=== PATIENT | female | born 1955 | race Caucasian/White ===

== ENCOUNTER 2024-01-03 08:51 | Outpatient (REF) | payer MEDICARE, SELFPAY ==
--- NOTE | 2024-01-03 08:41 | EMG_ITS ---
Bilateral median and ulnar motor and sensory studies were performed. Bilateral radial sensory studies were performed and paraspinal muscles were tested with a needle. Bilateral antecubital sensory studies were performed. IMPRESSION: [id number] bilateral median neuropathy across carpal tunnel. MD JAY JAY Tran/NATASHA / [id number]
== END 2024-01-03 08:52 | disposition home or self-care (01) ==
LOC: HO.NEURO 08:51
PROVIDERS: PCP Internal Medicine; Visit Provider Internal Medicine
DX: G56.93 Unspecified mononeuropathy of bilateral upper limbs (principal)
CPT/HCPCS: 95886; 95913

== ENCOUNTER 2024-09-26 09:57 | Outpatient (REF) | payer MEDICARE, SELFPAY ==
--- NOTE | ~2024-09-26 | MR_ITS ---
EXAMINATION: MR BRAIN WITHOUT CONTRAST CLINICAL INFORMATION: MCI. Family history of dementia. COMPARISON: None available. TECHNIQUE: MRI of the brain was obtained using routine sequences without contrast. FINDINGS: Focal susceptibility signal dorsal left midline mervin. Vascular morphology susceptibility signal, midline mid mervin. No signal abnormality or gross volume loss in the hippocampi. No restricted diffusion. No acute intracranial hemorrhage, mass effect, midline shift, hydrocephalus or herniation. Bilateral multifocal patchy and punctate deep periventricular and subcortical white matter hyperintense T2 FLAIR signal involving centrum semiovale and murrieta radiata and old lacunar infarcts in the basal ganglia and murrieta radiata white matter and likely cerebellum.. Probable coarctation frontal horns lateral ventricles, congenital. Flow-void signal within the main cerebral vessels is normal. Sellar/suprasellar region demonstrated no signal abnormality or masses. Craniocervical junction demonstrates normal position of the cerebellar tonsils. Mucosal thickening, paranasal sinuses. 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 No acute brain abnormality. White matter disease likely related to small vessel occlusive disease. Electronically signed by: Brant Bueno MD 09/26/2024 11:14 AM EDT
--- OUTSIDE RECORDS SUMMARY | 2024-09-26 11:20 | XMS_ITS | Clinical Summary ---
Author Organization [facility] Address [address] [place] [address] Phone Care Team Providers Care Tool Filer Hand Name Role Phone Slim Oswaldojeovany OJEDA Primary Care Provider [phone] Allergies Active Allergy Reactions Criticality Noted Date Comments House Dust Other (See Comments) 03/09/2005 Bronchospasm or Wheezing Medications colchicine (COLCRYS) 0.6 mg tablet Take 0.6 mg by mouth daily. Active aspirin 81 mg chewable tablet Take 81 mg by mouth daily. Active multivitamin with minerals tablet Take 1 tablet by mouth. Active cholecalciferol , vitamin D3, (VITAMIN D3) 10 mcg (400 unit) capsule Take 5,000 Units by mouth. Active cyanocobalamin, vitamin B-12, 1,000 mcg TbER Take 1 tablet by mouth. Active fluticasone propionate (FLONASE) 50 mcg/actuation nasal spray 6 09/20/19 25 Discontinu ed(No longer taking) rosuvastatin (CRESTOR) 10 MG tablet Take 1 tablet (10 mg total) by mouth daily. 90 tablet 3 8 09/20/19 25 Discontinu ed(No longer taking) Active Problems Problem Noted Date Diagnosed Date Women's annual routine gynecological examination 04/17/2019 Myalgia of pelvic floor 10/31/2018 Bicuspid aortic valve 04/03/2018 Overview (04/03/2018): Bicuspid aortic valve. Service date: 07/20/2013. Author: Alan Bonds MD. Atrial septal defect 04/03/2018 Overview (04/03/2018): Atrial septal defect. Service date: 07/20/2013. Author: Alan Bonds MD. Comment: Followed by Dr. Montemayor for congenital abnormality. Last echocardiogram in 2010. Patent foramen ovale 04/03/2018 Overview (04/03/2018): Patent foramen ovale. Service date: 02/08/2013. Author: Margarita Tirado MD. Summary: with intraatrial septal aneurysm. Comment: no history of neurologic events. Daily aspirin. Ventricular septal defect 04/03/2018 Overview (04/03/2018): Ventricular septal defect. Service date: 02/08/2013. Author: Margarita Tirado MD. 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 Service date: 07/20/2013. Author: Alan Bonds MD. Summary: cleft mitral. Mild regurgitation. 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 Service date: 07/20/2013. Author: Alan Bonds MD. Comment: s/p ablation 01/25/13. She continues on Toprol and had 3 reoccurrences since. She would like to proceed with another ablation, this time spending more time to the left side of the heart. It is noted that the patient has an ASD. She will stop the metoprolol prior to the procedure. Supraventricular tachycardia 04/03/2018 04/03/2018 Overview (04/03/2018): Supraventricular tachycardia. Service date: 10/19/2013. Author: Sinai Bajwa NP. Comment: She is s/p successful ablation with no reoccurrence of her symptoms thus far. She has recovered nicely with no palpitations or groin issues. She remains off beta blockers. She has been encouraged to call us with any reoccurrence of her symptoms, at which time we can consider a redo procedure. Encounters Date Type Department Care Team Description 09/19/2024 1:30 PM EDT Office Visit [facility] Cardiovascular Medicine [address] [facility] [address] [facility], 5th Floor, [address] [place] [address] Bk Noriega CNP Arrhythmia (Primary Dx); Partial AV canal; Atrial septal defect; Cleft leaflet of mitral valve 09/19/2024 11:16 AM EDT - 09/19/2024 11:59 PM EDT Hospital Encounter [facility] Cardiac [address] [place] [address] Margarita Tirado MD Arrived Discharge Disposition: Home or Self Care 03/21/2023 Procedure Pass [facility] Cardiac US [address] [place] [address] from Last 3 Months Immunizations Immunization Administration Dates Next Due Influenza, Unspecified Formulation 01/26/2013(De ferred: Other) Tdap 11/01/2017 Family History Medical History Relation Comments Mesothelioma Father Cancer Maternal Aunt Dementia Mother Relation Status Comments Father (Age 97) Maternal Aunt Mother Alive Social History Tobacco Use Types Packs/Day Years Used Date Smoking Tobacco: Never Smokeless Tobacco: Never Alcohol Use Standard Drinks/Week Comments Yes 1 (1 standard drink = 0.6 oz pur e alcohol) weekends Education Answer Date Recorded Are you interested in more education? Not on ashly e 09/02/2022 Are you concerned about learning? Not on file 09/02/2022 No 09/02/2022 No 09/02/2022 Digital Access Answer Date Recorded No 10/04/2022 No 10/04/2022 No 10/04/2022 Reliable internet access at home? Not on file 10/04/2022 Device with a working camera? 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 on file Not on file Last Filed Vital Signs Vital Sign Reading Time Taken Comments Blood Pressure 101/59 09/19/2024 1:33 PM EDT Pulse 83 09/19/2024 1:33 PM EDT Temperature - - Respiratory Rate 16 10/19/2013 12:00 AM EDT Oxygen Saturation - - Inhaled Oxygen Concentration - - Weight 60.8 kg (134 lb) 09/19/2024 1:33 PM EDT Height 162.6 cm (5' 4 ) 09/19/2024 11:16 AM EDT Body Mass Index 23 09/19/2024 11:16 AM EDT Plan of Treatment Upcoming Encounters Date Type Department Care Team (Late st Contact Info) Description 03/04/2025 1:00 PM EDT Office Visit [facility] Department of Neurology [address] [facility], 8th Foor, [address] [place] [address] Melissa Guadalupe MD [address] [facility] [address] [place] [address] [email or web address] 10/07/2025 2:00 PM EDT Office Visit [facility] Cardiovascular Medicine [address] [facility] [address], 5th Floor, [address] [place] [address] Margarita Tirado MD [address] [facility] [address] [place] [address] [email or web address] Health Maintenance Due Date Last Done Comments DEPRESSION SCREENING 1967 HEPATITIS C SCREENING 1973 COLOGUARD 02/01/2000 COLONOSCOPY 02/01/2000 COLORECTAL CANCER SCREENING 02/01/2000 FIT TEST 02/01/2000 FOBT 02/01/2000 SIGMOIDOSCOPY 02/01/2000 VIRTUAL COLONOSCOPY 02/01/2000 PNEUMOCOCCAL VACCINES (50+ y ears) (1 of 1 - PCV) 2005 ZOSTER VACCINES (1 of 2) 2005 OSTEOPOROSIS SCREENING INITI AL (ONE-TIME) 02/01/2020 MAMMOGRAM 03/27/2021 03/27/2019 COVID-19 VACCINE (2 - 2023-2 5 season) 2024 08/03/2020 LIPID PANEL 05/12/2027 05/12/2022 Adult Td,Tdap Booster 11/02/2027 11/01/2017 RSV VACCINE (1 - 1-dose 75+ series) 2030 SMOKING STATUS SCREENING (On ce After 26 Yrs) Completed 10/31/2018 HEPATITIS A VACCINES Aged Out No long er eligible based on patient's age to complete this topic HIB VACCINES Aged Out No longer eligi ble based on patient's age to complete this topic MENINGOCOCCAL VACCINES (ACWY) Aged Out No longer eligible based on patient's age to complete this topic MENINGOCOCCAL VACCINES (B) Aged Out N o longer eligible based on patient's age to complete this topic Medical Devices Not on file Procedures Procedure Name Priority Date/Time Associated Diagnosis Comments ECG 12-LEAD Routine 09/19/2024 1:38 PM EDT Arrhythmia CONGENITAL TTE COMPREHENSIVE W/ COLOR FLOW AND COMPLETE DOPPLER Routine 09/19/2024 11:54 AM EDT Congenital malformation of heart, unspecified EXTERNALLY RESULTED CHEMISTRY Routine 05/12/2022 HM MAMMOGRAPHY Routine 03/27/2019 from Last 3 Months or Most Recently Relevant to Health Maintenance Results * ECG 12-LEAD (09/19/2024 1:38 PM EDT) Systolic Blood Pressure 101 mmHg [facility] Diastolic Blood Pressure 59 mmHg [facility] Ventricular Rate EKG/MIN 83 BPM [facility] Atrial Rate 83 BPM [facility] LA Interval 200 ms [facility] QRS Duration 92 ms [facility] QT Interval 338 ms [facility] QTC Interval 397 ms [facility] P [place] 53 degrees [facility] R Wave [place] -43 degrees [facility] T Wave [place] 46 degrees [facility] 09/19/2024 1:38 PM EDT 09/26/2024 10:31 AM EDT Narrative [facility] - 09/26/2024 10:31 AM EDT NORMAL SINUS RHYTHM LEFT ANTERIOR HEMIBLOCK BORDERLINE CRITERIA FOR FIRST DEGREE ATRIOVENTRICULAR BLOCK POSSIBLE LEFT ATRIAL ENLARGEMENT NONSPECIFIC ST SEGMENT AND T WAVE ABNORMALITIES WHEN COMPARED WITH ECG OF 21-Mar-2023 13:27, NO SIGNIFICANT CHANGE WAS FOUND Bk Noriega [facility] ECG ORDERABLES Final Re sult [facility] * CONGENITAL TTE COMPREHENSIVE W/ COLOR FLOW AND COMPLETE DOPPLER (09/19/2024 11:54 AM EDT) Body Surface Area 1.63 m2 Left Ventricle Internal Diameter End Diastole 43 37 - 52 mm Left Ventricle Internal Diameter End Systole 28 <35 mm Raw LV EF% 58 % Left Ventricular Apical Contribution 10 Ejection Fraction 68 50 - 75 % Interventricular Septum Thickness 9 6 - 11 mm Aortic Sinus Diameter 29 <40 mm Height 163 cm Left Ventricular Posterior Wall Thickness 9 6 - 11 mm Ascending Aorta Diameter 32 <36 mm Weight 59.00 kg Left Atrium Dimension Anterior-Posterior 38 15 - 40 mm Left Atrial Volume Index 24 16 - 34 mL/m2 Relative Wall Thickness 0.42 0.22 - 0.42 Left Ventricular Mass 123.3 g Left Ventricle indexed to BSA 75.6 g/m2 Right Ventricle Basal Diameter 30 25 - 41 mm Left Atrial Volume 39 mL Left Atrial Volume Index by Height 24 mL/m Right Atrium Dimension Superior-Inferior 55 mm Right Atrium Index Superior-Inferior 34 19 - 30 mm/m2 Right Atrium Dimension Medial-Lateral 37 mm Right Atrium Dimension Medial-Lateral 23 13 - 25 mm/m2 Aortic Valve Sinus Index by BSA 18 mm/m2 Aorta Sinus Index by Height 1.78 cm/m Aorta Sinus CSA index by Height 4.05 cm2/m Ascending Aorta Index 20 mm/m2 Asc Aorta CSA Index by Height 4.93 cm2/m Tricuspid Valve Peak Velocity 2.4 m/s Right Ventricle to Right Atrium Pressure Gradient 23 mmHg Right Ventricle Peak Systolic Pressure (Assuming RAP 10) 33 mmHg MGB CV ECHO TV RVSP (ASSUMING RAP OF 5) 28 mmHg RVSP (Exclusive of RAP) 23 mmHg Ascending Aorta Index 20 mm Aortic Sinus Index 18 mm Ascending Aorta Diameter 20 mm Aortic Valve Sinus Index 1 18 19 - 27 mm AO ASC DIAM BSA INDEX 19.63 Right Atrium Dimension Medial-Lateral 23 mm/m2 Right Atrium Index Superior-Inferior 34 mm/m2 Anatomical Region Laterality Modality Heart Ultrasound Narrative 09/20/2024 10:17 AM EDT ?Normal biventricular size and systolic function ?There is a primum ASD with L to R shunting by Doppler. ?Cleft mitral valve with mild MR. Left Ventricle The left ventricle is normal in size. There is normal wall thickness. There is normal left ventricular systolic function. The LV ejection fraction is 68% (calculated via the single dimension method). There are no wall motion abnormalities. Right Ventricle The right ventricle is normal in size. There is normal right ventricular systolic function. Left Atrium The left atrium is normal in size. The left atrial volume is 39 mL. The left atrial volume index by BSA is 24 mL/m2 (normal: 16-34 mL/m2). Right Atrium The right atrium is dilated. The right atrial superior-inferior dimension is 55 mm; index is 34 mm/m2 (normal: 19-30 mm/m2). The right atrial medial-lateral dimension is 37 mm; index is 23 mm/m2 (normal: 13-25 mm/m2). Mitral Valve There is no evidence of mitral valve prolapse. There is diffuse thickening of both mitral leaflets. There is a cleft anterior mitral valve leaflet. There is no mitral stenosis. There is mild mitral regurgitation with an eccentrically directed jet. Tricuspid Valve There is mild tricuspid regurgitation. The RV systolic pressure was calculated at 33 mmHg (using TR peak velocity of 2.4 m/s and assuming an RA pressure of 10 mmHg). Aortic Valve The aortic valve is tricuspid. There is no aortic stenosis. There is no aortic regurgitation. Pulmonic Valve There is trace pulmonic regurgitation. Pericardium There is no pericardial effusion. General Findings The image quality was fair (3). Comparison Findings Compared to prior TTE study on 06/19/2020, there are no important changes. The RV remains normal in size. IAS/IVS There is a partial A-V canal defect. There is no evidence of patent foramen ovale (PFO). There is a primum atrial septal defect. The ASD shunting is left to right by Doppler. (Loops 79 and 90) There is no evidence of VSD shunting. Margarita Ramirez MD CV ECHO ORDERABLES Final R esult * (ABNORMAL) EXTERNALLY RESULTED CHEMISTRY (05/12/2022) Sodium - External 139 135 - 145 mEq/L Comment:Done at [facility] Potassium - External 4.7 3.5 - 5.5 mmol/L Comment:Done at [facility] Chloride - External 103 96 - 110 mmol/L Comment:Done at [facility] CO2 - External 29 21 - 32 mmol/L Comment:Done at [facility] BUN - External 20 5 - 25 mg/dL Comment:Done at [facility] Creatinine, serum - External 0.63 0.5 - 1.1 mg/dL Comment:Done at [facility] BUN/Creatinine - External eGFR - External eGFR () - External Glucose - External 99 70 - 100 mg/dL Comment:Done at [facility] Calcium - External 9.7 8.5 - 10.5 mg/dL Comment:Done at [facility] Phosphorus - External Magnesium - External Albumin - External 4.1 3.2 - 5 g/dL Comment:Done at [facility] Bilirubin, total - External 0.4 0.0 - 1.4 mg/dL Comment:Done at [facility] Bilirubin, direct - External Bilirubin (conjugated) - External Bilirubin, indirect - External Protein - External 6.8 6 - 8 g/dL Comment:Done at [facility] Alkaline Phosphatase - External 50 42 - 121 U/L Comment:Done at [facility] AST - External 15 10 - 42 U/L Comment:Done at [facility] ALT - External 21 10 - 60 U/L Comment:Done at [facility] Amylase - External Lipase (u/L) - External Cholesterol, total - External 194 0 - 200 mg/dL Comment:Done at [facility] LDL - External 91 0 - 100 mg/dL Comment:Done at [facility] Triglycerides - External 234(A) 0 - 150 mg/dL Comment:Done at [facility] HDL - External 57 >=40 mg/dL Comment:[facility] TIBC - External Iron - External Ferritin - External Folate - External Vitamin B12 - External CK - External Cotinine - External C-peptide (ng/mL) - External C-peptide (pmol/L) - External HCG, qualitative - External HCG, total - External NT-proBNP - External PTH - External TSH - External 2.55 0.40 - 4 uIU/mL Comment:Done at [facility] T3 - External Total T4 - External Free T4 - External Vitamin D 25(OH) - External AFP (Tumor Marker) - External Uric Acid - External PSA - External GGT - External Lactate, dehydrogenase - External Ammonia - External Vitamin A - External Alk phos: Intestinal Isoenzymes - External Alk phos: Bone Isoenzymes - External Alk phos: Liver Isoenzymes - External Alk phos: Placental Isoenzymes - External Alk phos: Macrohepatic Isoenzymes - External Cystatin C - External 05/12/2022 Historical Provider LAB BLOOD ORDERABLES Edit ed Result - Final * MAMMOGRAPHY FOR RESULT ENTRY ONLY (03/27/2019) Adama Teague MD HEALTH MAINTENANCE Final Result from Last 3 Months or Most Recently Relevant to Health Maintenance Insurance MEDICARE PART A & B [facility] MEDICARE REPLACEMENT MEDICARE PART A & B Member Subscriber Plan / Payer (Ef fective 2022-) Name:Wesjesseniajean carlos Tanja Member ID:[id number] Relation to Subscriber:Self Name:WesjesseniaMaicol evangelistaTanja Subscriber ID:[id number] Payer ID:[id number] Group ID:Not on file Type:Medicare Address: [facility] [employer] [facility] [address] [place] [phone] [facility] MEDICARE REPLACEMENT MEDICARE PART A & B MEDICARE PART A & B MEDICARE PART A & B MEDICARE REPLACEMENT MEDICARE PART A & B MEDICARE REPLACEMENT MEDICARE PART A & B MEDICARE REPLACEMENT MEDICARE PART A & B MEDICARE PART A & B MEDICARE REPLACEMENT Care Teams Tool Filer Hand Relationship Specialty Start Date End Date Oswaldo Smalls DO [address] [place] [id number] PCP - General 11/06/13 Additional Source Comments The information contained in this document represents components of the legal health record. It is not the complete legal health record.[facility]
--- OUTSIDE RECORDS SUMMARY | 2024-09-26 11:20 | XMS_ITS | Encounter Summary ---
Author Organization [facility] Address [address] [facility] [address] [place] [address] Phone Care Team Providers Care Pastry Wrapper Name Role Phone Oswaldo Smalls Primary Care Provider [phone] Encounter Details Date Type Department Care Team (Late st Contact Info) Description 05/14/2020 Procedure Pass [facility] Cardiac US [address] [place] [id number] Social History Tobacco Use Types Packs/Day Years Used Date Smoking Tobacco: Never Smokeless Tobacco: Never Alcohol Use Standard Drinks/Week Comments Yes 1 (1 standard drink = 0.6 oz pur e alcohol) weekends Comments No Sex and Gender Information Value Date Recorded Sex Assigned at Female 03/07/2023 11:49 AM EDT Legal Sex Female 7:15 PM EST Gender Identity Female 03/07/2023 11:49 AM EDT Sexual Orientation Straight 03/07/2023 11 :49 AM EDT 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 10/07/2025 2:00 PM EDT Office Visit [facility] Cardiovascular Medicine [address] [facility], 5th [address], [address] [place] [address] Margarita Tirado MD [address] [facility] [address] [place] [address] [email or web address] documented as of this encounter Visit Diagnoses Not on filedocumented in this encounter Care Teams Pastry Wrapper Relationship Specialty Start Date End Date Oswaldo Smalls DO [address] [place] [address] [address] [place] [address] PCP - General 11/06/13 documented as of this encounter Additional Source Comments The information contained in this document represents components of the legal health record. It is not the complete legal health record.[facility]
--- OUTSIDE RECORDS SUMMARY | 2024-09-26 11:20 | XMS_ITS | Clinical Summary ---
Author Organization [facility] [email or web address] Address [address] [facility] [place] [address] Care Team Providers Care Elementary Education Tutor Name Role Phone No, Pcp MARINE ERECTOR Primary Care Provider Unavailabl e Allergies No known active allergies Medications COLCRYS 0.6 mg tablet 1 09/05/2015 Active fluticasone (FLONASE) 50 mcg/actuation nasal spray 3 08/11/2015 Active simvastatin (ZOCOR) 10 MG tablet 0 09/25/2015 Active Social History Tobacco Use Types Packs/Day Years Used Date Smoking Tobacco: Never Tobacco Cessation:Counseling Given: No Alcohol Use Standard Drinks/Week Comments Not Asked 0 (1 standard drink = 0.6 oz pur e alcohol) Comments No Sex and Gender Information Value Date Recorded Sex Assigned at Not on file Legal Sex Female 12:08 PM EDT Gender Identity Not on file Sexual Orientation Not on file Last Filed Vital Signs Vital Sign Reading Time Taken Comments Blood Pressure 110/72 11/15/2017 3:24 PM EDT Pulse 81 11/15/2017 3:24 PM EDT Temperature 37.1 ??C (98.7 ??F) 11/15/2017 3:24 PM ED T Respiratory Rate 16 11/15/2017 3:24 PM EDT Oxygen Saturation 97% 11/15/2017 3:24 PM EDT Inhaled Oxygen Concentration - - Weight 65.8 kg (145 lb) 11/15/2017 3:24 PM EDT Height - - Body Mass Index - - Plan of Treatment Health Maintenance Due Date Last Done Comments Colorectal Cancer: COLONOSCO PY Screening every 10 yrs (or Modifier) 1955 Depression: Screening Annual ly using PHQ-2/9 in Adults 18 yrs or above (or HM Modifier)([facility]) 1973 Hepatitis C Virus Infection in Adolescents and Adults: Screening (or Modifier) ([facility]) 1973 JACKI Screening: Once using ST OP-BANG Questionnaire for Adults with Conditions or high BMI([facility]) 1973 SDOH Screening Reminder: Kristina gutierrez for all adults ([facility]) 1973 Tobacco Smoking Cessation: i n Adults excluding Women: Behavioral and Pharmacotherapy Interventions ([facility]) 1973 DTaP/Tdap/Td Vaccines ([facility]) (1 - Tdap) 1974 Colorectal Cancer Screening 45 -75 Yrs (or HM Modifier ) 02/01/2000 Colorectal Cancer: FLEXIBLE SIGMOIDOSCOPY Screening every 5 yrs 02/01/2000 Colorectal Cancer: Fecal Imm unochemical Test (FIT) Annually [facility] 02/01/2000 Colorectal Cancer: High-sens itivity gFOBT Screening Annually [facility] 02/01/2000 Colorectal Cancer: Stool Col oguard Screening every 3 yrs 02/01/2000 Colorectal Cancer:CT Colonography Screening every 5 yr s 02/01/2000 zzRETIRED Lipid Screening: E very 5 yrs for Women aged 45+ (or HM Modifier) ([facility]) 2001 Breast Cancer: Screening Kristina gutierrez age 50-74 yrs (or HM Modifier)([facility]) 2005 Pneumococcal Vaccination Scr eening: Patients 50+ yrs of age ([facility]) (1 of 1 - PCV) 2005 Zoster/Shingles Vaccine Seri es Screening: Adults aged 18+ yrs (or HM Modifiers)([facility]) (1 of 2) 2005 Osteoporosis Screening to Pr event Fractures: Women aged 65 years+ ([facility]) 02/01/2020 COVID-19 Vaccine Screening: Initial Series and Booster Status ([facility]) ( - 2023- season) 2024 Flu Vaccination: Ages 65+: Y early High Dose Recommended (or Modifier)([facility]) 12/07/2024 RSV Vaccines (1 - 1-dose 75+ series) 2030 Medical Devices Not on file Insurance [facility] Care Teams Elementary Education Tutor Relationship Specialty Start Date End Date No, Pcp, MARINE ERECTOR N/A Do not use PCP - General 10/17/15
--- OUTSIDE RECORDS SUMMARY | 2024-09-26 11:20 | XMS_ITS | Encounter Summary ---
Author Organization [facility] Address [address] [facility] [address] [place] [address] Phone Care Team Providers Care Claim Representative Name Role Phone Loriraúljenifferchelsie Oswaldo Primary Care Provider [phone] Encounter Details Date Type Department Care Team (Late Contact Info) Description 03/21/2023 Procedure Pass [facility] US [address] [place] [address] Social History Tobacco Use Types Packs/Day Years [...] Encounters Date Type Department Care Team (Late Contact Info) Description 03/04/2025 1:00 PM EDT Office Visit [facility] Department of Neurology [address] [facility], 8th Foor, [address] [place] [address] Melissa Guadalupe MD 55 [facility] [address] [place] [address] [email or web address] [email or web address] 10/07/2025 2:00 PM EDT Office Visit [facility] Cardiovascular Medicine [address] [facility], 5th Floor, [address] [place] [address] Margarita Tirado MD [address] [facility] [address] [place] [address] [email or web address] documented as of this encounter Visit Diagnoses Not on filedocumented in this encounter Care Teams Claim Representative Relationship Specialty Start Date End Date Oswaldo Smalls DO [address] [place] [address] [address] [place] [address] PCP - General 11/06/13 documented as of this encounter Additional Source Comments The information contained in this document represents components of the legal health record. It is not the complete legal health record.[facility]
--- OUTSIDE RECORDS SUMMARY | 2024-09-26 11:20 | XMS_ITS | Encounter Summary ---
Author Organization [facility] Address [address] [facility] [address] [place] [address] Phone Care Team Providers Care Stitch Marker Name Role Phone Oswaldo Smalls DO Primary Care Provider [phone] Reason for Referral * Outpatient Procedure - Closed Specialty Diagnoses / Procedures Referred By Contac t Referred To Contact Diagnoses ASD (atrial septal defect), primum Procedures Echo Congenital TTE Adult Echo TTE Margarita Tirado MD Phone: tel: fax: mailto:[email or web address] Referral ID Status Reason Start Date Expiration Date Visits Re quested Visits Authorized [id number] Closed 05/14/2020 05/14/2021 1 1 Encounter Details Date Type Department Care Team (Latest Contact Info) Description 06/19/2020 Ancillary [place] [facility] [place] [address] [facility], 5th Floor, [address] [place] [address] Margarita Tirado MD 55 [facility] [address] [place] [address] [email or web address] ASD (atrial septal defect), primum Social History Tobacco Use Types Packs/Day Years [...] Description 03/04/2025 1:00 PM EDT Office Visit [facility] [place] of [place]rology [address] [facility], 8th Foor, [address] [place] [address] Melissa Guadalupe MD [address] [facility] [address] [place] [address] [email or web address] 10/07/2025 2:00 PM EDT Office Visit [facility] [place] [address] [facility], 5th Floor, [address] [place] [address] Margarita Tirado MD [address] [facility] [address] [place] [address] [email or web address] documented as of this encounter Results * CONGENITAL TTE COMPREHENSIVE W/ COLOR FLOW AND COMPLETE DOPPLER (06/19/2020 11:37 AM EST) Body Surface Area 1.7 m2 Right Atrium Index Superior-Inferior 29 mm Right Atrium Dimension Medial-Lateral 20 mm Left Ventricle Internal Diameter End Diastole 43 37 - 52 mm Left Ventricle Internal Diameter End Systole 28 22 - 35 mm Raw LV EF% 58 % Left Ventricular Apical Contribution 10 Ejection Fraction 68 50 - 75 % Left Atrial Volume 42 mL Left Atrial Volume Index 24.71 mL/m2 Aortic Sinus Diameter 32 mm Mitral Valve Mean Gradient 1.00 mmHg Mitral Valve Peak Gradient 2.00 mmHg Left Atrium Dimension Anterior-Posterior 35 15 - 40 mm Right Atrium Dimension Superior-Inferior 49 mm Right Atrium Dimension Medial-Lateral 34 mm Tricuspid Valve Peak Velocity 2.1 m/s Right Ventricle Peak Systolic Pressure 28 mmHg Right Atrium Pressure Estimated 10 mmHg Right Ventricle to Right Atrium Pressure Gradient 18 mmHg Height 163 cm Weight 68 kg Ascending Aorta Diameter 32 mm Left Ventricular Posterior Wall Thickness 8 mm Interventricular Septum Thickness 9 mm Left Atrium Dimension Superior-Inferior 53 29 - 53 mm Left Atrium Dimension Medial-Lateral 38 29 - 49 mm Right Ventricle Linear Dimension 35 mm Aortic Valve Sinus Index 1 19 19 - 27 mm Ascending Aorta Diameter 19 mm Right Atrium Index Superior-Inferior 29 mm Right Atrium Dimension Medial-Lateral 20 mm Aortic Sinus Index 19 mm Ascending Aorta Index 19 mm Mitral Valve Gradient HR 70.00 bpm Anatomical Region Laterality Modality Heart Ultrasound Narrative 06/23/2020 3:02 PM EST Left Ventricle The left ventricular cavity size and wall thickness are normal. Left ventricular systolic function is normal. There are no segmental left ventricular wall motion abnormalities noted. The estimated ejection fraction is 68% (Normal 50-75%). The left ventricular ejection fraction was measured by the single dimension method. Right Ventricle The right ventricular size is normal. The right ventricular systolic function is normal. Left Atrium The left atrium is normal in size. The LA volume index is 24.71 mL/m2 (normal indexed value is 16-34 mL/m2). Right Atrium The right atrium is normal in size. The right atrial superior-inferior dimension measures 49 mm. The right atrial medial-lateral dimension measures 34 mm. The IVC is normal in size (2.1cm or less). The IVC demonstrates normal collapse with inspiration which is consistent with normal RA pressure. Mitral Valve There is no evidence of mitral stenosis. There is diffuse thickening of both mitral valve leaflets. There is no evidence of mitral valve prolapse. There is a cleft anterior mitral valve leaflet. There is mild mitral regurgitation detected by spectral and color Doppler. The MR jet originates through the cleft and is directed posteriorly. Tricuspid Valve There is evidence of mild tricuspid regurgitation by color and spectral Doppler. The estimated RV systolic pressure was estimated from the regurgitant tricuspid velocity (assuming an RA pressure of 5mmHg). The estimated PA systolic pressure is 23mmHg. Aortic Valve The aortic valve is tricuspid. There is no evidence of valvular aortic stenosis. There is evidence of trace aortic regurgitation by color and spectral Doppler. Pulmonic Valve There is evidence of trace pulmonary regurgitation by color and spectral Doppler. Pericardium There is no evidence of pericardial effusion. Interatrial Septum There is a small primum atrial septal defect(s). There is no evidence of a patent foramen ovale by Doppler. Interventricular Septum There is a partial A-V canal type defect. The primum ASD is small with left to right shunting and there is no VSD flow. General Findings The image quality was fair (3). The predominant rhythm during the study was sinus. Comparison Findings Compared to a prior TTE from 03/22/2018 no important changes. The degree of MR is unchanged. No right heart enlargement. Segmental Anatomy - Cardiac position: levocardia - {S, D, S} ( unrepaired partial AV canal defect) us Margarita Ramirez MD CV ECHO ORDERABLES Final R esult documented in this encounter Visit Diagnoses Diagnosis ASD (atrial septal defect), primum Ostium primum defect ASD (atrial septal defect), primum Ostium primum defect documented in this encounter Care Teams Stitch Marker Relationship Specialty Start Date End Date Oswaldo Smalls DO [address] [place] [id number] PCP - General 11/06/13 documented as of this encounter Additional Source Comments The information contained in this document represents components of the legal health record. It is not the complete legal health record.[facility]
--- OUTSIDE RECORDS SUMMARY | 2024-09-26 11:21 | XMS_ITS | Encounter Summary ---
Author Organization [facility] Address [address] [facility] [address] [place] [address] Phone Care Team Providers Care Occupational Health And Safety Adviser Name Role Phone Oswaldo Smalls DO Primary Care Provider [phone] Reason for Referral * Outpatient Procedure - Closed Specialty Diagnoses / Procedures Referred By Henry armas Referred To Contact Diagnoses ASD (atrial septal defect) Congenital cleft leaflet of mitral valve Procedures Echo Congenital TTE Adult Echo TTE Margarita Briceño MD Phone: tel: fax: mailto:[email or web address] Referral ID Status Reason Start Date Expiration Date Visits Re quested Visits Authorized [id number] Closed 01/16/2018 01/16/2019 1 1 Encounter Details Date Type Department Care Team (Latest Contact Info) Description 03/22/2018 Ancillary Orders [facility] Cardiovascular Medicine [address] [facility], 5th Floor, [address] [place] [address] Margarita Briceño MD [address] [facility] [address] [place] [address] [email or web address] ASD (atrial septal defect); Congenital cleft leaflet of mitral valve Social History Tobacco Use Types Packs/Day Years Used Date Smoking Tobacco: Never Comments Unknown Sex and Gender Information Value Date Recorded Sex Assigned at Female 03/07/2023 11:49 AM EDT Legal Sex Female 7:15 PM EST Gender Identity Female 03/07/2023 11:49 AM EDT Sexual Orientation Straight 03/07/2023 11 :49 AM EDT documented as of this encounter Plan of Treatment Upcoming Encounters Date Type Department Care Team (Late st Contact Info) Description 03/04/2025 1:00 PM EDT Office Visit [facility] Department of Neurology [address] [facility], 8th Foor, [address] [place] [address] Melissa Guadalupe MD [address] [facility] [address] [place] [address] [email or web address]. [facility] 10/07/2025 2:00 PM EDT Office Visit [facility] Cardiovascular Medicine [address] [facility], 5th Floor, [address] [place] [address] Margarita Briceño MD [address] [facility] [address] [place] [address] [email or web address] documented as of this encounter Results * CONGENITAL TTE COMPREHENSIVE W/ COLOR FLOW AND COMPLETE DOPPLER (03/22/2018 4:11 PM EST) Body Surface Area 1.75 m2 Right Atrium Index Superior-Inferior 31 mm Right Atrium Dimension Medial-Lateral 25 mm Left Ventricle Internal Diameter End Diastole 40 37 - 52 mm Left Ventricle Internal Diameter End Systole 27 22 - 35 mm Raw LV EF% 54 % Left Ventricular Apical Contribution 10 Ejection Fraction 64 50 - 75 % Aortic Sinus Diameter 33 mm Left Atrium Dimension Anterior-Posterior 38 15 - 40 mm Right Atrium Dimension Superior-Inferior 54 mm Right Atrium Dimension Medial-Lateral 43 mm Tricuspid Valve Peak Velocity 2.3 m/s Right Ventricle Peak Systolic Pressure 31 mmHg Right Atrium Pressure Estimated 10 mmHg Right Ventricle to Right Atrium Pressure Gradient 21 mmHg Ascending Aorta Diameter 32 mm Left Ventricular Posterior Wall Thickness 11 mm Interventricular Septum Thickness 10 mm Left Atrium Dimension Superior-Inferior 52 29 - 53 mm Left Atrium Dimension Medial-Lateral 41 29 - 49 mm Aortic Valve Sinus Index 1 19 19 - 27 mm Ascending Aorta Diameter 18 mm Right Atrium Index Superior-Inferior 31 mm Right Atrium Dimension Medial-Lateral 25 mm Aortic Sinus Index 19 mm Ascending Aorta Index 18 mm Anatomical Region Laterality Modality Heart Ultrasound Narrative 03/22/2018 5:13 PM EST ?? Atrioventricular canal/atrioventricular septal defect. Bicuspid aortic valve (fmxza-cef-fjfodjag cusp fusion.) ?? The left ventricular cavity size and wall thickness are normal. Left ventricular systolic function is normal. ?? The right ventricular size is normal. The right ventricular systolic function is normal. ?? Mild mitral/left-atrioventricular valve regurgitation via a cleft. No stenosis. ?? Mild tricuspid/right-atrioventricular valve regurgitation. No stenosis. ?? Small primum atrial septal defect with predominantly left to right shunting. No inlet ventricular septal defect seen. ?? The right atrium is upper normal/borderline dilated. ?? There is trace aortic regurgitation. There is no aortic stenosis. The visualized aorta appears normal. ?? Compared to a prior report from 08/22/2013, trace aortic regurgitation is now present. The right atrium is now borderline enlarged. Left Ventricle The left ventricular cavity size and wall thickness are normal. Left ventricular systolic function is normal. There are no segmental left ventricular wall motion abnormalities noted. The estimated ejection fraction is 64% (Normal 50-75%). The left ventricular ejection fraction was measured by the single dimension method. Right Ventricle The right ventricular size is normal. The right ventricular systolic function is normal. Left Atrium The left atrium is normal in size. Right Atrium The right atrium is borderline dilated. The right atrial superior-inferior dimension measures 54 mm. The right atrial medial-lateral dimension measures 43 mm. Mitral Valve There is a cleft anterior mitral valve leaflet. There is mild mitral regurgitation detected by spectral and color Doppler. The jet of the mitral regurgitation originates from the cleft and is directed posteriorly. Tricuspid Valve There is evidence of mild tricuspid regurgitation by color and spectral Doppler. The RV systolic pressure was estimated from the peak TV regurgitant velocity (assuming an RA pressure of 10 mmHg). The estimated RV systolic pressure is 31 mmHg. Aortic Valve The aortic valve is tricuspid. There is no evidence of valvular aortic stenosis. There is evidence of trace aortic regurgitation by color and spectral Doppler. The visualized portions of the thoracic aorta appear normal. Pulmonic Valve There is no evidence of pulmonic stenosis. There is evidence of trace pulmonary regurgitation by color and spectral Doppler. Pericardium There is no evidence of pericardial effusion. Interatrial Septum There is a small primum atrial septal defect with left to right shunting by Doppler. The ASD measures approximately 7 mm. Interventricular Septum There is a partial A-V canal type defect. The inlet ventricular septum thins and bows toward the tricuspid valve but no ventricular level shunt is identified. General Findings The image quality was good (2). 3D imaging used in the evaluation. Comparison Findings Compared to a prior report from 08/22/2013, trace aortic regurgitation is now present. The right atrium is now borderline enlarged. 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 It is not the complete legal health record.[facility]
== END 2024-09-26 09:58 | disposition home or self-care (01) ==
LOC: HO.MRI 09:57
PROVIDERS: PCP Internal Medicine; Visit Provider Psychiatry & Neurology Neurology
DX: G31.84 Mild cognitive impairment of uncertain or unknown etiology (principal)
CPT/HCPCS: 70551

== ENCOUNTER → 2024-09-26 10:00 | Outpatient (BNV) | payer MEDICARE, SELFPAY | PROVIDERS: PCP Internal Medicine; Visit Provider Radiology Diagnostic Radiology | DX: R90.82 White matter disease, unspecified (principal) | CPT/HCPCS: 70551 ==

== ENCOUNTER 2024-12-03 08:48 | Outpatient (AMB) | payer MEDICARE, SELFPAY ==
--- NOTE | 2024-12-03 08:52 | MHC.OFFVIS ---
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 (Initially seen in August 2024 when she was here for forgetfulness and to find out if she had dementia. Apparently her son and daughter have noted some cognitive issues but there were not here. A set of questions were brought mainly asking if a test could be done to find out if she had dementia. She said that she was ok and not forgetting. Bladder control was ok. Mood was ok. She was not drinking too much alcohol. No h/o change in personality or head injury. No new meds.) [facility] Medical History (Updated 12/03/24 @ 08:59 by Irish Choudhury MD) MCI (mild cognitive impairment) Paresthesia of skin Review of Systems Const Details: Constitutional:?No fever, chills, fatigue, weight loss, or night sweats. HEENT:?No headache, vision changes, hearing loss, nasal congestion, sore throat. Neurological:? Complain of forgetfulness Psychiatric:?No anxiety, depression, mood swings, sleep disturbance, or hallucinations. Endocrine:?No heat/cold intolerance, polydipsia, polyuria, or hair/skin changes. Hematologic/Lymphatic:?No easy bruising, bleeding, or lymphadenopathy. Integumentary (Skin):?No rash, lesions, itching, or color changes. ? Physical Exam Neuro Other: Mental Status: Alert and oriented to person, place, and time. Normal attention. Normal spontaneous speech, fluency, and comprehension. Cranial Nerves: CN II: Visual dickens full to confrontation, visual acuity intact. CN III, IV, : Pupils equal, round, reactive to light and accommodation. Extraocular movements are normal. CN V: Facial sensation is normal. CN VII: Facial movements symmetrical. CN VIII: Hearing intact to bedside conversation is normal. CN IX, X: Palate elevates symmetrically. CN XI: Shoulder shrug and head turn symmetrical. CN XII: Tongue midline without atrophy or fasciculations. Extrapyramidal: Full facial expressions and blinking. No rigidity. Movements are appropriate with no tremor or abnormality. Speech: Normal; no dysarthria or tremor. Assessment & Plan Assessment & Plan (1) MCI (mild cognitive impairment): Comment: MRI brain WO at [facility] in September 2024: Mild MVD, Tiny left pontine probably cavernous angioma Labs at [facility] at [facility] in 2024: TSH 1.74, B12 550 Code(s): G31.84 - Mild cognitive impairment of uncertain or unknown etiology Category: Medical Plan Impression: a: Mild cognitive impairment b: Mild cerebral microvascular changes c: Tiny pontine cavernoma Rec: a: Abeta 42/tau serum test for cerebral amyloid load b: Neurophiatry eval at office Orders: Orders ABeta 42/40 p-tau 217 Eval Today G31.84 - Mild cognitive impairment of uncertain or unknown etiology Referrals Neuropsychiatry Referral G31.84 - Mild cognitive impairment of uncertain or unknown etiology Coding Level of Care Code Est Pt Level 4 (87477) Diagnoses MCI (mild cognitive impairment) G31.84
--- OUTSIDE RECORDS SUMMARY | 2024-12-03 09:21 | XMS_ITS | Clinical Summary ---
Author Organization [facility] Address [address] [facility] [place] [address] Care Team Providers Care Pest Control Chemical Technician Name Role Phone No, Pcp CABLE TOWER OPERATOR Primary Care Provider Unavailabl e Allergies No [...] 81 11/15/2017 3:24 PM EDT Temperature 37.1 C (98.7 F) 11/15/2017 3:24 PM EDT Respiratory Rate 16 11/15/2017 3:24 PM EDT [...] Adults 18 yrs or above (or HM Modifier)([facility]) 1973 Hepatitis C Virus Infection in Adolescents and Adults: Screening (or Modifier) ([facility]) 1973 JACKI Screening: Once using ST OP-BANG Questionnaire for Adults with Conditions or high BMI([facility]) 1973 SDOH Screening Reminder: Kristina gutierrez for all adults ([facility]) 1973 Tobacco Smoking Cessation: i n Adults excluding Women: Behavioral and Pharmacotherapy Interventions ([facility]) 1973 DTaP/Tdap/Td Vaccines ([facility]) (1 - Tdap) 1974 Colorectal Cancer Screening 45 -75 Yrs (or HM Modifier ) 02/01/2000 Colorectal Cancer: FLEXIBLE SIGMOIDOSCOPY Screening every 5 yrs 02/01/2000 Colorectal Cancer: Fecal Imm unochemical Test (FIT) Annually [facility] 02/01/2000 Colorectal Cancer: High-sens itivity gFOBT Screening Annually [facility] 02/01/2000 Colorectal Cancer: Stool Col oguard Screening every 3 yrs 02/01/2000 Colorectal Cancer:CT Colonography Screening every 5 yr s 02/01/2000 Breast Cancer: Screening Kristina gutierrez age 50-74 yrs (or HM Modifier)([facility]) 2005 Pneumococcal Vaccination Scr eening: Patients 50+ yrs of age ([facility]) (1 of 1 - PCV) 2005 Zoster/Shingles Vaccine Seri es Screening: Adults aged 18+ yrs (or HM Modifiers)([facility]) (1 of 2) 2005 Osteoporosis Screening to Pr event Fractures: Women aged 65 years+ ([facility]) 02/01/2020 COVID-19 Vaccine Screening: Initial Series and Booster Status ([facility]) ( - 2023- season) 2024 Flu Vaccination: Ages 65+: Y early High Dose Recommended (or Modifier)([facility]) 12/07/2024 RSV Vaccines (1 - 1-dose 75+ series) 2030 [employer] Not on file Insurance [facility] Care Teams Pest Control Chemical Technician Relationship Specialty Start Date End Date No, Pcp, CABLE TOWER OPERATOR N/A Do not use PCP - General 10/17/15
--- OUTSIDE RECORDS SUMMARY | 2024-12-03 09:21 | XMS_ITS | Encounter Summary ---
Author Organization [facility] Address [address] [facility] [address] [place] [address] Phone Care Team Providers Care Holiday Detector Operator Name Role Phone Loriraúljenifferchelsie Oswaldo Primary Care Provider [phone] Encounter Details Date Type Department Care Team (Late Contact Info) Description 03/21/2023 Procedure Pass [facility] US [address] [place] [address] Social History Tobacco Use Types Packs/Day Years [...] Description 03/04/2025 1:00 PM EDT Office Visit [facility] Department of Neurology [address] [facility], 8th Foor, [address] [place] [address] Melissa Guadalupe MD [address] [facility] [address] [place] [address] [email or web address] 10/07/2025 2:00 PM EDT Office Visit [facility] Cardiovascular Medicine [address] [facility], 5th Floor, [address] [place] [address] Margarita Tirado MD [address] [facility] [address] [place] [address] [email or web address] documented as of this encounter Visit Diagnoses Not on filedocumented in this encounter Care Teams Holiday Detector Operator Relationship Specialty Start Date End Date Oswaldo Smalls DO [address] [place] [address] [address] [place] [address] PCP - General 11/06/13 documented as of this encounter Additional Source Comments The information contained in this document represents components of the legal health record. It is not the complete legal health record.[facility]
--- OUTSIDE RECORDS SUMMARY | 2024-12-03 09:21 | XMS_ITS | Clinical Summary ---
Author Organization [address] [facility] Address [address] [place] [phone] Phone Care Team Providers Care Kieselguhr Regenerator Operator Name Role Phone LoriOswaldo sweeney Primary Care Provider [phone] Encounters Date Type Department Care Team Description 09/28/2024 Lab Requisition [facility] Lab [address] [facility] [place] [phone] Aundrea Marin NP Urinary tract infection, site not specified; Hematuria, unspecified 09/27/2024 Lab Requisition [facility] Lab [address] [facility] [place] [phone] Aundrea Marin NP Urinary tract infection, site not specified; Hematuria, unspecified from Last 3 Months Surgical History Surgery Date Site/Laterality Comments COLONOSCOPY 03/17/2021 PROCEDURE: HISTORICAL COLONOSCOPY; COMMENT: tubular adenomas Social History Tobacco Use Types Packs/Day Years Used Date Smoking Tobacco: Never Smokeless Tobacco: Never Alcohol Use Standard Drinks/Week Comments Yes 0 (1 standard drink = 0.6 oz pur e alcohol) Comments Unknown Sex and Gender Information Value Date Recorded Sex Assigned at Not on file Legal Sex Female 3:52 AM EST Gender Identity Not on file Sexual Orientation Not on file Obstetrics History Plan of Treatment Health Maintenance Due Date Last Done Comments Breast Cancer Screening 1955 Pneumococcal Vaccine: 50+ Years (1 of 1 - PCV) 2005 Zoster Vaccines (1 of 2) 2005 Colorectal Cancer Screening: Colonoscopy 04/11/2022 Falls Risk Assessment 04/11/2022 Hepatitis C Screening 04/11/2022 Medicare Annual Wellness Visit 04/11/2022 Osteoporosis Screening (Bone Density Screening) 04/11/2022 Social Influencers of Health Screening 04/11/2022 COVID-19 Vaccine ( season) 2024 04/23/2021, 08/03/2020, 07/13/2020 Depression Screening 05/09/2024 Influenza Vaccine (#1) 2025 3, 04/23/2021, 02/12/2019, Additional history exists DTaP,Tdap,and Td Vaccines (2 - Td or Tdap) 11/02/2027 11/01/2017 Cholesterol Screening (Lipid Panel) 09/17/2029 09/17/2024 RSV Immunization Adult Patients (1 - 1-dose 75+ series) 2030 HIB Vaccines Aged Out No longer eligi ble based on patient's age to complete this topic HPV Vaccines Aged Out No longer eligi ble based on patient's age to complete this topic Hepatitis A Vaccines Aged Out No long er eligible based on patient's age to complete this topic Hepatitis B Vaccines Aged Out No long er eligible based on patient's age to complete this topic IPV Vaccines Aged Out No longer eligi ble based on patient's age to complete this topic MMR Vaccines Aged Out No longer eligi ble based on patient's age to complete this topic Meningococcal ACWY Vaccine Aged Out N o longer eligible based on patient's age to complete this topic Meningococcal B Vaccine Aged Out No l onger eligible based on patient's age to complete this topic RSV Immunization Patients Under 20 months Aged Out No longer eligible based on patient's age to complete this topic Varicella Vaccines Aged Out No longer eligible based on patient's age to complete this topic Procedures Procedure Name Priority Date/Time Associated Diagnosis Comments NON-GYNECOLOGIC CYTOLOGY 025 9:14 AM EDT Urinary tract infection, site not specified Hematuria, unspecified URINALYSIS WITH REFLEX MICROSCOPIC Routine 09/27/2024 9:14 AM EDT Urinary tract infection, site not specified Hematuria, unspecified URINALYSIS WITH REFLEX MICROSCOPIC Routine 09/27/2024 9:14 AM EDT Urinary tract infection, site not specified Hematuria, unspecified CULTURE URINE Routine 09/27/2024 9:14 AM EDT Urinary tract infection, site not specified Hematuria, unspecified VITAMIN B12 Routine 09/17/2024 10:51 AM EDT MCI (mild cognitive impairment) with memory loss CBC WITH AUTO DIFFERENTIAL Routine 09/17/2024 10:49 AM EDT Routine general medical examination at a [facility] Hyperlipemia Disease of artery (CMS/HCC V24) Paroxysmal atrial fibrillation with rapid ventricular response (CMS/HCC V24, CMS/HCC V28) HEMOGLOBIN A1C Routine 09/17/2024 10:49 AM EDT Routine general medical examination at a [facility] Hyperlipemia Disease of artery (CMS/HCC V24) Paroxysmal atrial fibrillation with rapid ventricular response (CMS/HCC V24, CMS/HCC V28) Abnormal finding of blood chemistry, unspecified CBC AND DIFFERENTIAL Routine 09/17/2024 10:49 AM EDT Routine general medical examination at a [facility] facility Hyperlipemia Disease of artery (CMS/HCC V24) Paroxysmal atrial fibrillation with rapid ventricular response (CMS/HCC V24, CMS/HCC V28) THYROID STIMULATING HORMONE Routine 09/17/2024 10:49 AM EDT Routine general medical examination at a [facility] Hyperlipemia Disease of artery (CMS/HCC V24) Paroxysmal atrial fibrillation with rapid ventricular response (CMS/HCC V24, CMS/HCC V28) BASIC METABOLIC PANEL Routine 09/17/2024 10:49 AM EDT Routine general medical examination at a [facility] Hyperlipemia Disease of artery (CMS/HCC V24) Paroxysmal atrial fibrillation with rapid ventricular response (CMS/HCC V24, CMS/HCC V28) CREATINE KINASE Routine 09/17/2024 10:49 AM EDT Routine general medical examination at a general [facility] Hyperlipemia Disease of artery (CMS/HCC V24) Paroxysmal atrial fibrillation with rapid ventricular response (CMS/HCC V24, CMS/HCC V28) ASPARTATE AMINOTRANSFERASE Routine 09/17/2024 10:49 AM EDT Routine general medical examination at a [facility] Hyperlipemia Disease of artery ([facility] V24) Paroxysmal atrial fibrillation with rapid ventricular response ([facility]/HCC V24, CMS/[facility] V28) ALANINE AMINOTRANSFERASE Routine 025 10:49 AM EDT Routine general medical examination at a [facility] Hyperlipemia Disease of artery ([facility] V24) Paroxysmal atrial fibrillation with rapid ventricular response (CMS/HCC V24, CMS/[facility] V28) LIPID PANEL WITH REFLEX TO DIRECT LDL Routine 09/17/2024 10:49 AM EDT Routine general medical examination at a [facility] Hyperlipemia Disease of artery ([facility] V24) Paroxysmal atrial fibrillation with rapid ventricular response ([facility] V24, CMS/[facility] V28) from Last 3 Months Results * (ABNORMAL) Urinalysis with reflex microscopic (09/27/2024 9:14 AM EDT) Specific [place] Urine 1.020 1.003 - 1.030 LAB URINALYSIS - AUTOMATED METHOD 09/27/2024 11:10 AM [facility] pH, Urine 5.5 5.0 - 8.0 pH LAB URINALYSIS - AUTOMATED METHOD 09/27/2024 11:10 AM [facility] Leukocytes, Urine Small(A) Negative LAB URINALYSIS - AUTOMATED METHOD 09/27/2024 11:10 AM [facility] Nitrite, Urine Negative Negative LAB URINALYSIS - AUTOMATED METHOD 09/27/2024 11:10 AM [facility] Protein, Urine Negative <=Trace mg/dL LAB URINALYSIS - AUTOMATED METHOD 09/27/2024 11:10 AM [facility] Glucose, Urine Negative Negative mg/dL LAB URINALYSIS - AUTOMATED METHOD 09/27/2024 11:10 AM [facility] Ketones, Urine Negative Negative mg/dL LAB URINALYSIS - AUTOMATED METHOD 09/27/2024 11:10 AM EDT [facility] Urobilinogen, Urine 0.2 0.2 - 1.0 mg/dL LAB URINALYSIS - AUTOMATED METHOD 09/27/2024 11:10 AM [facility] Bilirubin, Urine Negative Negative LAB URINALYSIS - AUTOMATED METHOD 09/27/2024 11:10 AM [facility] Blood, Urine Trace(A) Negative LAB URINALYSIS - AUTOMATED METHOD 09/27/2024 11:10 AM [facility] RBC, Urine 5.0(H) 0 - 4 /HPF LAB URINALYSIS - AUTOMATED METHOD 09/27/2024 11:10 AM [facility] WBC, Urine 2.4 0 - 4 /HPF LAB URINALYSIS - AUTOMATED METHOD 09/27/2024 11:10 AM [facility] Squamous Epithelial, Urine 24 0 - 60 /LPF LAB URINALYSIS - AUTOMATED METHOD 09/27/2024 11:10 AM [facility] Bacteria, Urine Negative Negative /HPF LAB URINALYSIS - AUTOMATED METHOD 09/27/2024 11:10 AM [facility] Hyaline Casts, Urine 1.6 0 - 3 /LPF LAB URINALYSIS - AUTOMATED METHOD 09/27/2024 11:10 AM [facility] Urine Urine specimen obtained by clean catch procedure / Unknown 09/27/2024 9:14 AM EDT 09/27/2024 10:56 AM EDT us Aundrea Marin PRODUCT DEVELOPMENT WORKER LAB URINE ORDERABLES Fi nal Result [facility] [address] [place] [address], * Culture urine (09/27/2024 9:14 AM EDT) Culture, Urine No growth 09/28/2024 10:16 AM EDT [facility] Urine Urine specimen obtained by clean catch procedure / Unknown 09/27/2024 9:14 AM EDT 09/27/2024 10:56 AM EDT Aundrea Marin NP LAB MICROBIOLOGY - GENE RAL ORDERABLES Final Result Performing Organization Address [facility]/ZIP Co de Phone Number [facility] [address] [place] [address], [place] [phone] * Non-gynecologic cytology (09/27/2024 9:14 AM EDT) Final Diagnosis A. Urine, Voided, : Negative for high grade urothelial carcinoma. 09/28/2024 1:41 PM EDT [facility] Specimen A Adequacy Satisfactory for evaluation 09/28/2024 1:41 PM EDT [facility] Gross Description A. Urine, Voided, : Received 5 ml clear yellow fluid 09/28/2024 1:41 PM EDT [facility] Disclaimer Unless otherwise specified, all tissue is 10% NB formalin fixed and paraffin embedded. Technical cytopathology services provided by [facility], at [address] [place] [id number] (IA # [id number]/Ines Elias MD, Radio Repair Teacher.) 09/28/2024 1:41 PM EDT [facility] Urine specimen from urethra / Unknown 09/27/2024 9:14 AM EDT 09/28/2024 8:53 AM EDT us Aundrea Marin NP LAB CYTOLOGY ORDERABLES Final Result Performing Organization Address City/[facility]/ZIP Co de Phone Number [facility] [address] [place] [address], [place] [phone] * Vitamin B12 (09/17/2024 10:51 AM EDT) Pathologist [facility] Vitamin B-12 550 250 - 900 pcg/mL LAB CHEMISTRY METHOD 09/17/2024 4:35 PM EDT [facility] Blood Venous blood specimen / Unknown Venipuncture / Unknown 09/17/2024 10:51 AM EDT 09/17/2024 10:51 AM EDT Irish Choudhury MD LAB BLOOD ORDERABLES Final Result [facility] [address] [place] [address], [place] [phone] * (ABNORMAL) Lipid panel with reflex to direct LDL (09/17/2024 10:49 AM EDT) [facility] Cholesterol 203(H) 0 - 200 mg/dL LAB CHEMISTRY METHOD 09/17/2024 4:26 PM [facility] Triglycerides 114 0 - 150 mg/dL LAB CHEMISTRY METHOD 09/17/2024 4:26 PM [facility] HDL 60 >=40 mg/dL LAB CHEMISTRY METHOD 09/17/2024 4:26 PM [facility] LDL Calculated 120(H) 0 - 100 mg/dL LAB CHEMISTRY METHOD 09/17/2024 4:26 PM [facility] VLDL Cholesterol Abilio 22.8 mg/dL LAB CHEMISTRY METHOD 09/17/2024 4:26 PM T [facility] Non HDL Chol. (LDL+VLDL) 143 <145 mg/dL LAB CHEMISTRY METHOD 09/17/2024 4:26 PM [facility] Chol/HDL Ratio 3.4 0.0 - 4.4 LAB CHEMISTRY METHOD 09/17/2024 4:26 PM [facility] Blood Venous blood specimen / Unknown Venipuncture / Unknown 09/17/2024 10:49 AM EDT 09/17/2024 10:49 AM EDT Aundrea Marin PRODUCT DEVELOPMENT WORKER LAB BLOOD ORDERABLES Fi nal Result [facility] [address] [place] [address], * (ABNORMAL) CBC auto differential (09/17/2024 10:49 AM EDT) [facility] WBC 5.9 4.8 - 10.8 K/mcL LAB HEMETOLOGY METHOD 09/17/2024 3:26 PM EDT [facility] RBC 4.90(H) 3.80 - 4.80 M/mcL LAB HEMETOLOGY METHOD 09/17/2024 3:26 PM EDT [facility] Hemoglobin 13.7 11.5 - 16.0 g/dL LAB HEMETOLOGY METHOD 09/17/2024 3:26 PM EDT [facility] Hematocrit 43.6 35.0 - 47.0 % LAB HEMETOLOGY METHOD 09/17/2024 3:26 PM EDT [facility] MCV 88.6 79.0 - 98.0 FL LAB HEMETOLOGY METHOD 09/17/2024 3:26 PM EDT [facility] MCH 27.8 27.0 - 32.0 pcg LAB HEMETOLOGY METHOD 09/17/2024 3:26 PM EDT [facility] MCHC 31.4(L) 32.0 - 37.0 g/dL LAB HEMETOLOGY METHOD 09/17/2024 3:26 PM EDT [facility] RDW 14.0 11.0 - 15.0 % LAB HEMETOLOGY METHOD 09/17/2024 3:26 PM EDT [facility] Platelets 224 130 - 400 K/mcL LAB HEMETOLOGY METHOD 09/17[facility]2024 [facility] MPV 10.2 7.0 - 11.0 FL LAB HEMETOLOGY METHOD 09/17/2024 3:26 PM [facility] NRBC 0.0 <1.0 % LAB HEMETOLOGY METHOD 09/17/2024 3:26 PM [facility] NRBC Absolute 0.00 <0.10 K/mcL LAB HEMETOLOGY METHOD 09/17/2024 3:26 PM [facility] Neutrophils Relative 60.6 % LAB HEMETOLOGY METHOD 09/17/2024 3:26 PM [facility] Lymphocytes Relative 24.9 % LAB HEMETOLOGY METHOD 09/17/2024 3:26 PM [facility] Monocytes Relative 8.7 % LAB HEMETOLOGY METHOD 09/17/2024 3:26 PM [facility] Eosinophils Relative 5.3 % LAB HEMETOLOGY METHOD 09/17/2024 3:26 PM [facility] Basophils Relative 0.3 % LAB HEMETOLOGY METHOD 09/17/2024 3:26 PM [facility] Immature Granulocytes Relative 0.2 % LAB HEMETOLOGY METHOD 09/17/2024 3:26 PM [facility] Neutrophils Absolute 3.56 1.50 - 7.00 K/mcL LAB HEMETOLOGY METHOD 09/17/2024 3:26 PM [facility] Lymphocytes Absolute 1.46 1.00 - 5.00 K/mcL LAB HEMETOLOGY METHOD 09/17/2024 3:26 PM [facility] Monocytes Absolute 0.51 0.20 - 1.00 K/mcL LAB HEMETOLOGY METHOD 09/17/2024 3:26 PM [facility] Eosinophils Absolute 0.31 0.00 - 0.50 K/mcL LAB HEMETOLOGY METHOD 09/17/2024 3:26 PM EDT [facility] Basophils Absolute 0.02 0.00 - 0.20 K/[facility] LAB HEMETOLOGY METHOD 09/17/2024 3:26 PM EDT [facility] Immature Granulocytes Absolute 0.01 0.00 - 0.03 K/[facility] LAB HEMETOLOGY METHOD 09/17/2024 3:26 PM EDT [facility] Blood Venous blood specimen / Unknown Venipuncture / Unknown 09/17/2024 10:49 AM EDT 09/17/2024 10:49 AM EDT Aundrea Marin NP LAB BLOOD ORDERABLES Fi nal Result Performing Organization Address City/[facility]/ZIP Co de Phone Number [facility] [address] [place] [address], [place] [phone] * Alanine aminotransferase (09/17/2024 10:49 AM EDT) ALT (SGPT) 24 10 - 60 unit/L LAB CHEMISTRY METHOD 09/17/2024 4:23 PM EDT [facility] Blood Venous blood specimen / Unknown Venipuncture / Unknown 09/17/2024 10:49 AM EDT 09/17/2024 10:49 AM EDT Aundrea Marin PRODUCT DEVELOPMENT WORKER LAB BLOOD ORDERABLES Fi nal Result [facility] [address] [place] [address], [place] [phone] * Aspartate aminotransferase (09/17/2024 10:49 AM EDT) AST (SGOT) 15 10 - 42 unit/L LAB CHEMISTRY METHOD 09/17/2024 4:23 PM EDT [facility] Blood Venous blood specimen / Unknown Venipuncture / Unknown 09/17/2024 10:49 AM EDT 09/17/2024 10:49 AM EDT Aundrea Marin PRODUCT DEVELOPMENT WORKER LAB BLOOD ORDERABLES Fi nal Result [facility] [address] [place] [address], [place] [phone] * Thyroid stimulating hormone (09/17/2024 10:49 AM EDT) TSH 1.74 0.40 - 4.00 mcIU/mL LAB CHEMISTRY METHOD 09/17/2024 5:18 PM EDT [facility] Blood Venous blood specimen / Unknown Venipuncture / Unknown 09/17/2024 10:49 AM EDT 09/17/2024 10:49 AM EDT Aundrea Marin NP LAB BLOOD ORDERABLES Fi nal Result Performing Organization Address [facility]/ZIP Co de Phone Number [facility] [address] [place] [address], [place] [phone] * Hemoglobin A1c (09/17/2024 10:49 AM EDT) Pathologist [facility] Hemoglobin A1C 5.5 <6.5 % LAB CHEMISTRY METHOD 09/17/2024 10:18 PM EDT [facility] Mean Bld Glu Estim. 111 mg/dL LAB CHEMISTRY METHOD 09/17/2024 10:18 PM EDT [facility] Blood Venous blood specimen / Unknown Venipuncture / Unknown 09/17/2024 10:49 AM EDT 09/17/2024 10:49 AM EDT Aundrea Marin NP LAB BLOOD ORDERABLES Fi nal Result [facility] [address] [place] [address], [place] [phone] * Creatine kinase (09/17/2024 10:49 AM EDT) [facility] Total CK 60 22 - 269 unit/L LAB CHEMISTRY METHOD 09/17/2024 4:23 PM T [facility] Blood Venous blood specimen / Unknown Venipuncture / Unknown 09/17/2024 10:49 AM EDT 09/17/2024 10:49 AM EDT Aundrea Marin PRODUCT DEVELOPMENT WORKER LAB BLOOD ORDERABLES Fi nal Result [facility] [address] [place] [address], [place] [phone] * Basic metabolic panel (09/17/2024 10:49 AM EDT) [facility] Sodium 139 133 - 145 mmol/L LAB CHEMISTRY METHOD 09/17/2024 4:23 PM [facility] Potassium 4.5 3.5 - 5.5 mmol/L LAB CHEMISTRY METHOD 09/17/2024 4:23 PM [facility] Chloride 105 96 - 110 mmol/L LAB CHEMISTRY METHOD 09/17/2024 4:23 PM [facility] CO2 31 21 - 32 mmol/L LAB CHEMISTRY METHOD 09/17/2024 4:23 PM [facility] Anion Gap 3 3 - 11 LAB CHEMISTRY METHOD 09/17/2024 4:23 PM [facility] Glucose 79 70 - 100 mg/dL LAB CHEMISTRY METHOD 09/17/2024 4:23 PM [facility] BUN 12 5 - 25 mg/dL LAB CHEMISTRY METHOD 09/17/2024 4:23 PM [facility] Creatinine 0.54 0.50 - 1.10 mg/dL LAB CHEMISTRY METHOD 09/17/2024 4:23 PM EDT [facility] eGFR 100 >=60 mL/min/1. 73m2 LAB CHEMISTRY METHOD 09/17/2024 4:23 PM EDT [facility] Comment:Calculation based on the Chronic Kidney Disease Epidemiology Collaboration (CKD-EPI) equation refit without adjustment for race. BUN/Creatinine Ratio 22.2 LAB CHEMISTRY METHOD 09/17/2024 4:23 PM EDT [facility] Calcium 8.8 8.5 - 10.5 mg/dL LAB CHEMISTRY METHOD 09/17/2024 4:23 PM EDT [facility] Blood Venous blood specimen / Unknown Venipuncture / Unknown 09/17/2024 10:49 AM EDT 09/17/2024 10:49 AM EDT Aundrea Marin PRODUCT DEVELOPMENT WORKER LAB BLOOD ORDERABLES Fi nal Result [facility] [address] [place] [address], from Last 3 Months Insurance [employer] MEDICARE Care Teams Kieselguhr Regenerator Operator Relationship Specialty Start Date End Date Oswaldo Smalls DO [address] [place] [phone] PCP - General 10/30/09
== END 2024-12-03 09:14 | disposition home or self-care (01) ==
LOC: HO.HSM 08:50
PROVIDERS: PCP Internal Medicine; Visit Provider Psychiatry & Neurology Neurology
DX: G31.84 Mild cognitive impairment of uncertain or unknown etiology (principal)
CPT/HCPCS: 99214

== ENCOUNTER 2024-12-03 08:48 | Outpatient (REF) | payer MEDICARE, SELFPAY | END 2024-12-03 08:49 | disposition home or self-care (01) | LOC: HO.LAB 08:48 | PROVIDERS: PCP Internal Medicine; Visit Provider Psychiatry & Neurology Neurology | DX: G31.84 Mild cognitive impairment of uncertain or unknown etiology (principal) | CPT/HCPCS: 36415; 82233; 82234; 84393; 99212 ==

== ENCOUNTER → 2025-03-06 09:46 | Outpatient (BNVA) | payer MEDICARE, SELFPAY | PROVIDERS: PCP Internal Medicine; Visit Provider Psychiatry & Neurology Neurology | DX: G31.84 Mild cognitive impairment of uncertain or unknown etiology (principal) | CPT/HCPCS: 99212 ==

== ENCOUNTER → 2025-03-06 09:46 | Outpatient (AMB) | payer MEDICARE, SELFPAY ==
--- NOTE | 2025-03-06 09:47 | A.OFFVIS_ITS ---
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 (Initially seen in August 2024 when she was here for forgetfulness and to find out if she had dementia. Apparently her son and daughter have noted some cognitive issues but there were not here. A set of questions were brought mainly asking if a test could be done to find out if she had dementia. She said that she was ok and not forgetting. Bladder control was ok. Mood was ok. She was not drinking too much alcohol. No h/o change in personality or head injury. No new meds.) [facility] Medical History (Updated 03/06/25 @ 09:50 by Irish Choudhury MD) MCI (mild cognitive impairment) Paresthesia of skin Physical Exam Neuro Other: Mental Status: Alert and oriented to person, place, and time. Normal attention. Normal spontaneous speech, fluency, and comprehension. Cranial Nerves: CN II: Visual dickens full to confrontation, visual acuity intact. CN III, IV, : Pupils equal, round, reactive to light and accommodation. Extraocular movements are normal. CN V: Facial sensation is normal. CN VII: Facial movements symmetrical. CN VIII: Hearing intact to bedside conversation is normal. CN IX, X: Palate elevates symmetrically. CN XI: Shoulder shrug and head turn symmetrical. CN XII: Tongue midline without atrophy or fasciculations. Motor: Bulk and tone normal in all extremities. No significant muscle weakness in arms and legs. No drift. Reflexes: Deep tendon reflexes 2+ and symmetric. Plantar response down-going bilaterally. Coordination: [id number] and [id number] testing normal. No dysmetria. Gait and Station: No obvious gait abnormality. No ataxia or instability. Extrapyramidal: Full facial expressions and blinking. No rigidity. Movements are appropriate with no tremor or abnormality. Speech: Normal; no dysarthria or tremor. Assessment & Plan Assessment & Plan (1) MCI (mild cognitive impairment): Comment: Amyloid/tau serum test at [facility] [place] [place] in 2024: Low likelihood MRI brain WO at [facility] [place] in September 2024: Mild MVD, Tiny left pontine probably cavernous angioma Labs at [facility] [place] at [facility] in 2024: TSH 1.74, B12 550 Code(s): G31.84 - Mild cognitive impairment of uncertain or unknown etiology Category: Medical Plan Impression: a: Mild cognitive impairment b: Mild cerebral microvascular changes c: Tiny pontine cavernoma Rec: a: Stay active. Learn about measures to be taken with MCI. Link provided to read about it. Coding Level of Care Code Est Pt Level 4 (23903) Diagnoses MCI (mild cognitive impairment) G31.84
--- OUTSIDE RECORDS SUMMARY | 2025-03-06 11:39 | XMS_ITS | Encounter Summary ---
Author Organization [facility] Address [address] [place] [address] Care Team Providers Care Director Of Engineering Name Role Phone Oswaldo Smalls Primary Care Provider [phone] Encounter Details Date Type Department Care Team (Late st Contact Info) Description 09/27/2024 Lab Requisition [facility] - Main Lab [address] [facility] [place] [address] Aundrea Marin, WILDLAND FIREFIGHTER [address] [place] [address] Urinary tract infection, site not specified; Hematuria, unspecified Social History Tobacco Use Types Packs/Day Years Used Date Smoking Tobacco: Never Smokeless Tobacco: Never Alcohol Use Standard Drinks/Week Comments Yes 0 (1 standard drink = 0.6 oz pur e alcohol) Comments Unknown Sex and Gender Information Value Date Recorded Sex Assigned at Not on file Legal Sex Female 3:52 AM EST Gender Identity Not on file Sexual Orientation Not on file documented as of this encounter Plan of Treatment Not on file documented as of this encounter Procedures Procedure Name Priority Date/Time Associated Diagnosis Comments URINALYSIS WITH REFLEX MICROSCOPIC Routine 09/27/2024 9:14 AM EDT Urinary tract infection, site not specified Hematuria, unspecified URINALYSIS WITH REFLEX MICROSCOPIC Routine 09/27/2024 9:14 AM EDT Urinary tract infection, site not specified Hematuria, unspecified CULTURE URINE Routine 09/27/2024 9:14 AM EDT Urinary tract infection, site not specified Hematuria, unspecified documented in this encounter Results * (ABNORMAL) Urinalysis with reflex microscopic (09/27/2024 9:14 AM ED) Specific Free Soil Urine 1.020 1.003 - 1.030 LAB URINALYSIS - AUTOMATED METHOD 09/27/2024 11:10 AM [facility] pH, Urine 5.5 5.0 - 8.0 pH LAB URINALYSIS - AUTOMATED METHOD 09/27/2024 11:10 AM [facility] Leukocytes, Urine Small(A) Negative LAB URINALYSIS - AUTOMATED METHOD 09/27/2024 11:10 AM [facility] Nitrite, Urine Negative Negative LAB URINALYSIS - AUTOMATED METHOD 09/27/2024 11:10 AM [facility] Protein, Urine Negative <=Trace mg/dL LAB URINALYSIS - AUTOMATED METHOD 09/27/2024 11:10 AM [facility] Glucose, Urine Negative Negative mg/dL LAB URINALYSIS - AUTOMATED METHOD 09/27/2024 11:10 AM [facility] Ketones, Urine Negative Negative mg/dL LAB URINALYSIS - AUTOMATED METHOD 09/27/2024 11:10 AM [facility] Urobilinogen, Urine 0.2 0.2 - 1.0 mg/dL LAB URINALYSIS - AUTOMATED METHOD 09/27/2024 11:10 AM [facility] Bilirubin, Urine Negative Negative LAB URINALYSIS - AUTOMATED METHOD 09/27/2024 11:10 AM [facility] Blood, Urine Trace(A) Negative LAB URINALYSIS - AUTOMATED METHOD 09/27/2024 11:10 AM [facility] RBC, Urine 5.0(H) 0 - 4 /HPF LAB URINALYSIS - AUTOMATED METHOD 09/27/2024 11:10 AM [facility] WBC, Urine 2.4 0 - 4 /HPF LAB URINALYSIS - AUTOMATED METHOD 09/27/2024 11:10 AM [facility] Squamous Epithelial, Urine 24 0 - 60 /LPF LAB URINALYSIS - AUTOMATED METHOD 09/27/2024 11:10 AM EDT [facility] Bacteria, Urine Negative Negative /HPF LAB URINALYSIS - AUTOMATED METHOD 09/27/2024 11:10 AM EDT [facility] Hyaline Casts, Urine 1.6 0 - 3 /LPF LAB URINALYSIS - AUTOMATED METHOD 09/27/2024 11:10 AM EDT [facility] Urine Urine specimen obtained by clean catch procedure / Unknown 09/27/2024 9:14 AM EDT 09/27/2024 10:56 AM EDT us Aundrea Marin NP LAB URINE ORDERABLES Fi nal Result Performing Organization Address [facility]/ZIP Co de Phone Number [facility] [address] [place] [address], [place] [phone] * Culture urine (09/27/2024 9:14 AM EDT) Culture, Urine No growth 09/28/2024 10:16 AM EDT [facility] Urine Urine specimen obtained by clean catch procedure / Unknown 09/27/2024 9:14 AM EDT 09/27/2024 10:56 AM EDT us Aundrea Marin NP LAB MICROBIOLOGY - GENE RAL ORDERABLES Final Result Performing Organization Address [facility]/ZIP Co de Phone Number [facility] [address] [place] [address], [place] [phone] documented in this encounter Visit Diagnoses Diagnosis Urinary tract infection, site not specified Hematuria, unspecified documented in this encounter Care Teams Director Of Engineering Relationship Specialty Start Date End Date Oswaldo Smalls DO [address] [place] [phone] PCP - General 10/30/09 documented as of this encounter
--- OUTSIDE RECORDS SUMMARY | 2025-03-06 11:39 | XMS_ITS | Encounter Summary ---
Author Organization [facility] Address [address] [place] [address] Care Team Providers Care Muffler Hand Name Role Phone Oswaldo Smalls DO Primary Care Provider [phone] Encounter Details Date Type Department Care Team (Late st Contact Info) Description 09/28/2024 Lab Requisition [facility] - Main Lab [address] [facility] [place] [address] Aundrea Marin, TOBACCO CHECKOUT CLERK [address] [place] [address] Urinary tract infection, site not [...] Priority Date/Time Associated Diagnosis Comments NON-GYNECOLOGIC CYTOLOGY 09/27/2024 9:14 AM EDT Urinary tract infection, site not specified Hematuria, unspecified documented in this encounter Results * Non-gynecologic cytology (09/27/2024 9:14 AM EDT) Final Diagnosis A. Urine, Voided, : Negative for high grade urothelial carcinoma. 09/28/2024 1:41 PM EDT [facility] ([facility]) [facility] Specimen A Adequacy Satisfactory for evaluation 09/28/2024 1:41 PM EDT [facility] Gross Description A. Urine, Voided, : Received 5 ml clear yellow fluid 09/28/2024 1:41 PM EDT [facility] Disclaimer Unless otherwise specified, all tissue is 10% NB formalin fixed and paraffin embedded. Technical cytopathology services provided by [facility], at [address] [place] [address] (CLIA # [id number]/Ines Elias MD, Unit Support Representative.) 09/28/2024 1:41 PM EDT [facility] Urine specimen from urethra / Unknown 09/27/2024 9:14 AM EDT 09/28/2024 8:53 AM EDT us Aundrea Marin TOBACCO CHECKOUT CLERK LAB CYTOLOGY ORDERABLES Final Result [facility] [address] [place] [address], documented in this encounter Visit Diagnoses Diagnosis Urinary tract infection, site not specified Hematuria, unspecified documented in this encounter Care Teams Muffler Hand Relationship Specialty Start Date End Date Oswaldo Smalls DO [address] [place] [phone] PCP - General 10/30/09 documented as of this encounter
--- OUTSIDE RECORDS SUMMARY | 2025-03-06 11:39 | XMS_ITS | Clinical Summary ---
Author Organization [address] [facility] Address [address] [place] [phone] Phone Care Team Providers Care Supervisor Sewing Department Name Role Phone LoriOswaldo sweeney Primary Care Provider [phone] Surgical History Surgery Date Site/Laterality Comments COLONOSCOPY [...] Last Done Comments Breast Cancer Screening 1955 Colorectal Cancer Screening: Colonoscopy 1955 Pneumococcal Vaccine: 50+ Years (1 of 1 - PCV) 2005 Zoster Vaccines (1 of 2) 2005 Falls Risk Assessment 04/11/2022 Hepatitis C Screening 04/11/2022 Medicare Annual Wellness Visit 04/11/2022 Osteoporosis Screening (Bone Density Screening) 04/11/2022 Social Influencers of Health Screening 04/11/2022 Depression Screening 05/09/2024 COVID-19 Vaccine ( season) 2025 04/23/2021, 08/03/2020, 07/13/2020 Influenza Vaccine (#1) 2025 , 04/23/2021, 02/12/2019, Additional history exists DTaP,Tdap,and Td [...] Procedure Name Priority Date/Time Associated Diagnosis Comments LIPID PANEL WITH REFLEX TO DIRECT LDL Routine 09/17/2024 10:49 AM EDT Routine general medical examination at a health care facility Hyperlipemia Disease of artery ([facility] V24) Paroxysmal atrial fibrillation with rapid ventricular response ([facility] V24, CMS/HCC V28) from Last 3 Months or Most Recently Relevant to Health Maintenance Results * (ABNORMAL) Lipid panel with reflex to direct LDL (09/17/2024 10:49 AM EDT) Cholesterol 203(H) 0 - 200 mg/dL LAB CHEMISTRY METHOD 09/17/2024 4:[address] [facility] Triglycerides 114 0 - 150 mg/dL LAB CHEMISTRY METHOD 09/17/2024 4:[address] [facility] HDL 60 >=40 mg/dL LAB CHEMISTRY METHOD 09/17/2024 4:[address] [facility] LDL Calculated 120(H) 0 - 100 mg/dL LAB CHEMISTRY METHOD 09/17/2024 4:[address] [facility] VLDL Cholesterol Abilio 22.8 mg/dL LAB CHEMISTRY METHOD 09/17/2024 4:[address] [facility] Non HDL Chol. (LDL+VLDL) 143 <145 mg/dL LAB CHEMISTRY METHOD 09/17/2024 4:[address] [facility] Chol/HDL Ratio 3.4 0.0 - 4.4 LAB CHEMISTRY METHOD 09/17/2024 4:[address] [facility] Blood Venous blood specimen / Unknown Venipuncture / Unknown 09/17/2024 10:49 AM EDT 09/17/2024 10:49 AM EDT Aundrea Marin ENVIRONMENTAL MANAGEMENT SPECIALIST LAB BLOOD ORDERABLES Fi nal Result [facility] ([facility] [address] [place] [address], from Last 3 Months or Most Recently Relevant to Health Maintenance Insurance [employer] MEDICARE Care Teams Supervisor Sewing Department Relationship Specialty Start Date End Date Oswaldo Smalls DO [address] [place] [phone] PCP - General 10/30/09
--- OUTSIDE RECORDS SUMMARY | 2025-03-06 11:39 | XMS_ITS | Encounter Summary ---
Author Organization [facility] Address [address] [facility] [address] [place] [address] Phone Care Team Providers Care Brim Shaper Name Role Phone Loriraúljenifferchelsie Oswaldo Primary Care Provider [phone] Encounter Details Date Type Department Care Team (Late Contact Info) Description 03/21/2023 Procedure Pass [facility]iac US [address] [place] [address] Social History Tobacco Use Types Packs/Day Years [...] Department Care Team (Late Contact Info) Description 10/07/2025 2:00 PM EDT Office Visit [facility] [place] [address] [facility], 5th Floor, [address] [place] [address] Margarita Tirado MD [address] [facility] [address] [place] [address] [email or web address] documented as of this encounter Visit Diagnoses Not on filedocumented in this encounter Care Teams Brim Shaper Relationship Specialty Start Date End Date Oswaldo Smalls DO [address] [place] [address] [address] [place] [address] PCP - General 11/06/13 documented as of this encounter Additional Source Comments The information contained in this document represents components of the legal health record. It is not the complete legal health record.[facility]
--- OUTSIDE RECORDS SUMMARY | 2025-03-06 11:40 | XMS_ITS | Encounter Summary ---
Author Organization [facility] Address [address] [place] [address] Phone Care Team Providers Care Wine Fermenter Name Role Phone Oswaldo Smalls DO Primary Care Provider [phone] Reason for Referral * Outpatient Procedure - Closed Specialty Diagnoses / Procedures Referred By Henry armas Referred To Contact Diagnoses ASD (atrial septal defect) Congenital cleft leaflet of mitral valve Procedures Echo Congenital TTE Adult Echo TTE Margarita Briceño MD Phone: tel: fax: mailto:[email or web address] Referral ID Status Reason Start Date Expiration Date Visits Re quested Visits Authorized [id number] Closed 01/16/2018 01/16/2019 1 1 Encounter Details Date Type Department Care Team (Latest Contact Info) Description 03/22/2018 Ancillary Orders [facility] [place] [address] [facility], 5th Floor, [address] [place] [address] Margarita Briceño MD [address] [facility] [address] [place] [address] [email or web address] ASD (atrial septal defect); Congenital cleft [...] Care Team (Late st Contact Info) Description 10/07/2025 2:00 PM EDT Office Visit [facility] [place] [address] [facility], 5th Floor, [address] [place] [address] Margarita Briceño MD [address] [facility] [address] [place] [address] [email or web address] documented as of this encounter Results [...] Heart Ultrasound Narrative 03/22/2018 5:13 PM EST Atrioventricular canal/atrioventricular septal defect. Bicuspid aortic valve (upsyo-gvj-hswqmdqj cusp fusion.) The left ventricular cavity size and wall thickness are normal. Left ventricular systolic function is normal. The right ventricular size is normal. The right ventricular systolic function is normal. Mild mitral/left-atrioventricular valve regurgitation via a cleft. No stenosis. Mild tricuspid/right-atrioventricular valve regurgitation. No stenosis. Small primum atrial septal defect with predominantly left to right shunting. No inlet ventricular septal defect seen. The right atrium is upper normal/borderline dilated. There is trace aortic regurgitation. There is no aortic stenosis. The visualized aorta appears normal. Compared to a prior report from 08/22/2013, [...] valve documented in this encounter Care Teams Wine Fermenter Relationship Specialty Start Date End Date Oswaldo Smalls DO [address] [place] [address] [address] [place] [address] PCP - General 11/06/13 documented as of this encounter Additional Source Comments The information contained in this document represents components of the legal health record. It is not the complete legal health record.[facility]
--- OUTSIDE RECORDS SUMMARY | 2025-03-06 11:40 | XMS_ITS | Encounter Summary ---
Author Organization [facility] Address [address] [facility] [address] [place] [address] Phone Care Team Providers Care Telephone Lines Repairer Name Role Phone Oswaldo Smalls Primary Care Provider [phone] Encounter Details Date Type Department Care Team (Late st Contact Info) Description 05/14/2020 Procedure Pass [facility] Cardiac US [address] [place] [address] Social History Tobacco Use Types Packs/Day Years [...] Description 10/07/2025 2:00 PM EDT Office Visit [facility] Cardiovascular Medicine [address] [facility], 5th Floor, [address] [place] [address] Margarita Tirado MD [address] [facility] [address] [place] [address] [email or web address] documented as of this encounter Visit Diagnoses Not on filedocumented in this encounter Care Teams Telephone Lines Repairer Relationship Specialty Start Date End Date Slim DO Oswaldo [address] [place] [address] 18 [place] [address] PCP - General 11/06/13 documented as of this encounter Additional Source Comments The information contained in this document represents components of the legal health record. It is not the complete legal health record.[facility]
--- OUTSIDE RECORDS SUMMARY | 2025-03-06 11:40 | XMS_ITS | Encounter Summary ---
Author Organization [facility] Address [address] [facility] [address] [address] Phone Care Team Providers Care Network Control Operators Supervisor Name Role Phone Oswaldo Smalls DO Primary Care Provider [phone] Reason for Referral * Outpatient Procedure - Closed Specialty Diagnoses / Procedures Referred By Contac t Referred To Contact Diagnoses ASD (atrial septal defect), primum Procedures Echo Congenital TTE Adult Echo TTE Margarita Tirado MD Phone: tel: fax: mailto:[email or web address] Referral ID Status Reason Start Date Expiration Date Visits Re quested Visits Authorized [id number] Closed 05/14/2020 05/14/2021 1 1 Encounter Details Date Type Department Care Team (Latest Contact Info) Description 06/19/2020 Ancillary Orders [facility] [place] [address] [facility], 5th Floor, [address] [place] [address] Margarita Tirado MD [address] [facility] [address] [place] [address] [email or web address] ASD (atrial septal defect), primum Social History [...] Description 10/07/2025 2:00 PM EDT Office Visit [facility] [place] [address] [facility], 5th Floor, [address] [place] [address] Margarita Tirado MD [address] [address] [email or web address] documented as of this encounter Results * [...] S} ( unrepaired partial AV canal defect) Margarita Ramirez MD CV ECHO ORDERABLES Final R esult documented in this encounter Visit Diagnoses Diagnosis ASD (atrial septal defect), primum Ostium primum defect ASD (atrial septal defect), primum Ostium primum defect documented in this encounter Care Teams Network Control Operators Supervisor Relationship Specialty Start Date End Date Oswaldo Smalls DO [address] [place] [address] 18 [place] [address] PCP - General 11/06/13 documented as of this encounter Additional Source Comments The information contained in this document represents components of the legal health record. It is not the complete legal health record.[facility]
--- OUTSIDE RECORDS SUMMARY | 2025-03-06 11:40 | XMS_ITS | Clinical Summary ---
Author Organization [facility] Address [address] [facility] [address] [place] [address] Phone Care Team Providers Care Paramedical Aide Name Role Phone LoriraúljenifferOswaldo holguin Primary Care Provider [phone] Allergies Active Allergy Reactions Criticality Noted Date Comments House Dust Other (See Comments) 03/09/2005 Bronchospasm or Wheezing Medications colchicine (COLCRYS) 0.6 mg tablet Take 0.6 mg by mouth daily. Active aspirin 81 mg chewable tablet Take 81 mg by mouth daily. Active multivitamin with minerals tablet Take 1 tablet by mouth. Active cholecalciferol, vitamin D3, (VITAMIN D3) 10 mcg (400 unit) capsule Take 5,000 Units by mouth. Active cyanocobalamin, vitamin B-12, 1,000 mcg TbER Take 1 tablet by mouth. Active Active Problems Problem Noted Date Diagnosed Date [...] time we can consider a redo procedure. Immunizations Immunization Administration Dates Next Due Influenza, [...] Description 10/07/2025 2:00 PM EDT Office Visit [facility] Cardiovascular Medicine [address] [facility], 5th [address], [address] [place] [id number] Margarita Tirado MD [address] [address] [email or web address] Health Maintenance Due Date Last Done Comments DEPRESSION SCREENING 1967 HEPATITIS C SCREENING 1973 COLOGUARD 02/01/2000 COLONOSCOPY 02/01/2000 COLORECTAL CANCER SCREENING 02/01/2000 FIT TEST 02/01/2000 FOBT 02/01/2000 SIGMOIDOSCOPY 02/01/2000 VIRTUAL COLONOSCOPY 02/01/2000 PNEUMOCOCCAL VACCINES (50+ years) (1 of 1 - PCV) 2005 ZOSTER VACCINES (1 of 2) 2005 OSTEOPOROSIS SCREENING INITI AL (ONE-TIME) 02/01/2020 MAMMOGRAM 03/27/2021 03/27/2019 INFLUENZA VACCINE (#1) 2024 9, 02/27/2018 COVID-19 VACCINE (2 - 2024-2 6 season) 2025 08/03/2020 LIPID PANEL 05/12/2027 05/12/2022 Adult Td,Tdap [...] Procedure Name Priority Date/Time Associated Diagnosis Comments EXTERNALLY RESULTED CHEMISTRY Routine 05/12/2022 HM MAMMOGRAPHY Routine 03/27/2019 from Last 3 Months or Most Recently Relevant to Health Maintenance Results * (ABNORMAL) EXTERNALLY RESULTED CHEMISTRY (05/12/2022) Sodium - External 139 135 - 145 mEq/L Comment:Done at [facility] Laborat ories Potassium - External 4.7 3.5 - 5.5 mmol/L Comment:Done at [facility] Chloride - External 103 96 - 110 mmol/L Comment:Done at [facility] CO2 - External 29 21 - 32 mmol/L Comment:Done at [facility] BUN - External 20 5 - 25 mg/dL Comment:Done at [facility] Creatinine, serum - External 0.63 0.5 - 1.1 mg/dL Comment:Done at [facility] BUN/Creatinine - External eGFR - External eGFR () - External Glucose - External 99 70 - 100 mg/dL Comment:Done at [facility] Calcium - External 9.7 8.5 - 10.5 mg/dL Comment:Done at [facility] Phosphorus - External Magnesium - External Albumin - External 4.1 3.2 - 5 g/dL Comment:Done at [facility] Bilirubin, total - External 0.4 0.0 - 1.4 mg/dL Comment:Done at [facility] Bilirubin, direct - External Bilirubin (conjugated) - External Bilirubin, indirect - External Protein - External 6.8 6 - 8 g/dL Comment:Done at [facility] Alkaline Phosphatase - External 50 42 - 121 U/L Comment:Done at [facility] AST - External 15 10 - 42 U/L Comment:Done at [facility] ALT - External 21 10 - 60 U/L Comment:Done at [facility] Amylase - External Lipase (u/L) - External Cholesterol, total - External 194 0 - 200 mg/dL Comment:Done at [facility] LDL - External 91 0 - 100 mg/dL Comment:Done at [facility] Triglycerides - External 234(A) 0 - 150 mg/dL Comment:Done at [facility] HDL - External 57 >=40 mg/dL Comment:Done at [facility] TIBC - External Iron - External Ferritin - External Folate - External Vitamin B12 - External CK - External Cotinine - External C-peptide (ng/mL) - External C-peptide (pmol/L) - External HCG, qualitative - External HCG, total - External NT-proBNP - External PTH - External TSH - External 2.55 0.40 - 4 uIU/mL Comment:Done at [facility] T3 - External Total T4 - External [...] Maintenance Insurance MEDICARE PART A & B [facility] MEDICARE REPLACEMENT MEDICARE PART A & B Member Subscriber Plan / Payer (Ef fective 2022-) Name:Tanja Chung Member ID:[id number] Relation to Subscriber:Self Name:Tanja Chung Subscriber ID:[id number] Payer ID:[id number] Group ID:Not on file Type:Medicare Address: [employer] [address] [place] [address] MEDICARE REPLACEMENT MEDICARE PART A & B Member Subscriber Plan / Payer (Ef fective 2022-) Name:Tanja Chung Member ID:[id number] Relation to Subscriber:Self Name:Tanja Chung Subscriber ID:[id number] Payer ID:[id number] Group ID:Not on file Type:Medicare Address: [employer] [address] [place] [address] MEDICARE PART A & B MEDICARE PART A & B MEDICARE REPLACEMENT MEDICARE PART A & B MEDICARE REPLACEMENT MEDICARE PART A & B MEDICARE REPLACEMENT MEDICARE PART A & B Member Subscriber Plan / Payer (Ef fective 2022-Present) Name:Tanja Chung Member ID:[id number] Relation to Subscriber:Self Name:Tanja Chung Subscriber ID:[id number] Payer ID:[id number] Group ID:Not on file Type:Medicare Address: [employer] [address] [place] [address] MEDICARE PART A & B Member Subscriber Plan / Payer (Ef fective 2022-Present) Name:Tanja Chung Member ID:[id number] Relation to Subscriber:Self Name:Tanja Chung Subscriber ID:[id number] Payer ID:[id number] Group ID:Not on file Type:Medicare Address: [employer] [address] [place] [address] MEDICARE REPLACEMENT Care Teams Paramedical Aide Relationship Specialty Start Date End Date Oswaldo Smalls DO [address] [place] [address] 18 [place] [address] PCP - General 11/06/13 Additional Source Comments The information contained in this document represents components of the legal health record. It is not the complete legal health record.[facility]
--- NOTE | 2025-03-06 15:46 | A.OFFVIS_ITS ---
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 (Initially seen in August 2024 when she was here for forgetfulness and to find out if she had dementia. Apparently her son and daughter have noted some cognitive issues but there were not here. A set of questions were brought mainly asking if a test could be done to find out if she had dementia. She said that she was ok and not forgetting. Bladder control was ok. Mood was ok. She was not drinking too much alcohol. No h/o change in personality or head injury. No new meds.) [facility] Medical History (Updated 03/06/25 @ 09:50 by Irish Choudhury MD) MCI (mild cognitive impairment) Paresthesia of skin Physical Exam Neuro Other: Mental Status: Alert and oriented to person, place, and time. Normal attention. Normal spontaneous speech, fluency, and comprehension. Cranial Nerves: CN II: Visual dickens full to confrontation, visual acuity intact. CN III, IV, : Pupils equal, round, reactive to light and accommodation. Extraocular movements are normal. CN V: Facial sensation is normal. CN VII: Facial movements symmetrical. CN VIII: Hearing intact to bedside conversation is normal. CN IX, X: Palate elevates symmetrically. CN XI: Shoulder shrug and head turn symmetrical. CN XII: Tongue midline without atrophy or fasciculations. Motor: Bulk and tone normal in all extremities. No significant muscle weakness in arms and legs. No drift. Reflexes: Deep tendon reflexes 2+ and symmetric. Plantar response down-going bilaterally. Coordination: [id number] and [id number] testing normal. No dysmetria. Gait and Station: No obvious gait abnormality. No ataxia or instability. Extrapyramidal: Full facial expressions and blinking. No rigidity. Movements are appropriate with no tremor or abnormality. Speech: Normal; no dysarthria or tremor. 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
== END ==
LOC: HO.HSM 09:47
PROVIDERS: PCP Internal Medicine; Visit Provider Psychiatry & Neurology Neurology
DX: G31.84 Mild cognitive impairment of uncertain or unknown etiology (principal)
CPT/HCPCS: 99214